=== PATIENT | male | born 1965 | race Caucasian/White ===

== ENCOUNTER 2017-09-04 21:02 | Emergency (ER) | payer MEDICAID ==
[~2017-09-04] VITALS: Ht 5535.5 cm; Wt 165.1 kg
[2017-09-04] MEDS ORDERED: ibuprofen tablet 400 MG TABLET PO ONE (22:15)
[2017-09-04 22:23] VITALS: BP 154/57
== END 2017-09-04 22:25 | disposition home or self-care (01) ==
LOC: ER 21:03
DX: K11.20 Sialoadenitis, unspecified (principal); F17.200 Nicotine dependence, unspecified, uncomplicated; J44.9 Chronic obstructive pulmonary disease, unspecified; F12.10 Cannabis abuse, uncomplicated; F11.10 Opioid abuse, uncomplicated; Z88.8 Allergy status to other drugs, medicaments and biological substances; Z87.442 Personal history of urinary calculi
CPT/HCPCS: 99282

== ENCOUNTER 2020-12-13 09:44 | Emergency (ER) | payer MEDICAID ==
[~2020-12-13] VITALS: Ht 167.6 cm; Wt 161.0 kg
[~2020-12-13 09:44] MED LIST: FURO-150 PO; UBID100C45 PO
[2020-12-13] MEDS ORDERED: iohexol 300mg/ml 100ml inj. ONE (12:39)
[2020-12-13 13:04] VITALS: BP 139/85
== END 2020-12-13 14:59 | disposition home or self-care (01) ==
LOC: ER 09:45
DX: M54.5 Low back pain (principal); Z20.822 Contact with and (suspected) exposure to COVID-19; M25.512 Pain in left shoulder; M25.511 Pain in right shoulder; R09.89 Other specified symptoms and signs involving the circulatory and respiratory systems; J44.9 Chronic obstructive pulmonary disease, unspecified; F41.9 Anxiety disorder, unspecified; F12.90 Cannabis use, unspecified, uncomplicated; F14.90 Cocaine use, unspecified, uncomplicated; Z86.19 Personal history of other infectious and parasitic diseases; Z87.442 Personal history of urinary calculi; Z72.89 Other problems related to lifestyle; Z88.8 Allergy status to other drugs, medicaments and biological substances; Z79.899 Other long term (current) drug therapy
CPT/HCPCS: 74177; 87635; 99285; C9803; Q9967

== ENCOUNTER 2023-09-21 00:50 | Emergency (ER) | payer MEDICAID ==
[~2023-09-21] VITALS: Ht 167.6 cm; Wt 156.7 kg
[2023-09-21 00:54] VITALS: BP 139/93; PULSE 81; TEMP 98.4; O2SAT 96
[2023-09-21 01:09] VITALS: RESP 18
== END 2023-09-21 01:28 | disposition home or self-care (01) ==
LOC: ER 00:51
DX: K11.5 Sialolithiasis (principal); J44.9 Chronic obstructive pulmonary disease, unspecified; F12.90 Cannabis use, unspecified, uncomplicated; Z88.8 Allergy status to other drugs, medicaments and biological substances; Z79.899 Other long term (current) drug therapy
CPT/HCPCS: 99281

== ENCOUNTER 2024-02-21 14:31 | Outpatient (CLI) | payer MEDICAID ==
[~2024-02-21] VITALS: Ht 162.6 cm; Wt 160.1 kg
[2024-02-21] MEDS: albuterol 2.5 MG/3 ML nebule NEB ONE (15:11)
[2024-02-21 15:12] VITALS: PULSE 83; RESP 16; O2SAT 93
[2024-02-21 15:25] VITALS: PULSE 88; RESP 16
== END 2024-02-21 23:59 | disposition home or self-care (01) ==
LOC: RT 14:31
PROVIDERS: ATTEND Nurse Practitioner Family
DX: J44.9 Chronic obstructive pulmonary disease, unspecified (principal); F17.210 Nicotine dependence, cigarettes, uncomplicated
CPT/HCPCS: 94060; 94760